=== PATIENT | female | born 1930 | race Caucasian/White ===

== ENCOUNTER → 2016-08-17 | Outpatient (CLI) | payer OTHER ==
[2015-03-17 12:03] VITALS: BP 133/68
[~2016-08-17] MED LIST: ACET325T9 PO; AMIO200T2 PO; ASPI81TA2 PO; ATOR20TA58 PO; ATOR40TA59 PO; CALC1TAB75 PO; CARV6.252 PO; CLOP75TA27 PO; DULO30CA2 PO; FURO40TA4 PO; ISOS30TA4 PO; LEVO75TA5 PO; LISI2.5T PO; MULT1TAB52 PO; POTA10TA31 PO
--- NOTE | 2016-08-17 15:17 | KCIC ---
PROCEDURE [facility] CXR. HISTORY Hypoxia. Shortness of air with activity. Previous VT. History pacemaker. COMPARISON None available. FINDINGS No acute lung infiltrate or pleural effusion or pulmonary edema or lung mass or pneumothorax is seen. Mild cardiomegaly is evident. A sternotomy is evident. A bipolar atrioventricular pacemaker is in place. The pulmonary vasculature, mediastinum and both kylie are otherwise unremarkable. The osseous structures appear intact. IMPRESSION Mild cardiomegaly. No acute lung infiltrate. Electronically signed by: Randy Franco MD (Aug 17, 2016 15:15:29)
== END | disposition home or self-care (01) ==
LOC: KCIC 13:32
PROVIDERS: ATTEND Family Medicine
DX: I51.7 Cardiomegaly (principal); I25.2 Old myocardial infarction; Z95.0 Presence of cardiac pacemaker
CPT/HCPCS: 71020

== ENCOUNTER → 2016-08-30 | Outpatient (CLI) | payer OTHER ==
[2015-03-17 12:03] VITALS: BP 133/68
--- NOTE | 2016-08-30 12:33 | RAD ---
EXAM: Ventilation/perfusion scintigraphy. HISTORY: Shortness of breath. History of pulmonary blood. COMPARISON: Chest radiograph, 08/30/2016. FINDINGS: 13.0 mCi xenon-133 were inhaled and ventilation images obtained. A 5.5 mCi technetium 99m MAA was injected intravenously and perfusion images were obtained in multiple projections. Ventilation images demonstrate physiologic ventilation on inspiration. There is a radiotracer retention diffusely, worse on the left than right. Perfusion images demonstrate no segmental defects. A photopenic defect on the right corresponds with a pacemaker generator. IMPRESSION: 1. Normal perfusion images. No evidence of pulmonary embolism. 2. Radiotracer retention is consistent with chronic obstructive pulmonary disease or small airways disease.
--- NOTE | 2016-08-30 13:11 | RAD ---
EXAM: Chest 2 views. HISTORY: Shortness of breath. COMPARISON: 08/17/2016. FINDINGS: Frontal and lateral views of the chest are obtained. A right-sided pacemaker has its leads in the right atrium and right ventricle. There are changes of coronary artery bypass grafting. Opacities in the left base, likely corresponding with an anterior opacity on the lateral projection, suggest scarring and are stable. There is no pneumothorax or pleural effusion. The heart is mildly enlarged. Hyperinflation is consistent with chronic obstructive pulmonary disease. IMPRESSION: 1. Mild cardiomegaly. 2. Opacities in the left base most likely indicate scarring. Correlation with remote studies is suggested to confirm long-term stability.
--- NOTE | 2016-08-31 11:20 | CARD ---
APPROVED REPORT EXAM: Two-dimensional and M-mode echocardiogram with Doppler and color Doppler. Other Information Quality : Good INDICATION Dyspnea Surgery/Intervention ICD/Pacemaker: 2D DIMENSIONS RVDd2.8 (2.9-3.5cm)Left Atrium(2D)3.4 (1.6-4.0cm) IVSd1.1 (0.7-1.1cm)Aortic Root(2D)3.2 (2.0-3.7cm) LVDd4.1 (3.9-5.9cm)LVOT Diameter2.0 (1.8-2.4cm) PWd1.1 (0.7-1.1cm)LVDs3.2 (2.5-4.0cm) FS (%) 21.3 %SV32.8 ml LVEF(%)43.7 (>50%) Mitral Valve MV E Mhmmvvbz57.5cm/sMV E Peak Gr.3mmHg MV DECEL [id number] A Cobdjnmy11.0cm/s MV E Mean Gr.1mmHgMV EOX21qe E/A Ratio0.6MV A Vxdyoeuv050ya MVA (PHT)2.74cm2 Tricuspid Valve TR P. Doplyaod756jz/sRAP VOTYKLML4wxTi TR Peak Gr.20ecNgKDRI06abIn Pulmonary Vein S1 Tqseavfl45.4cm/sD2 Hlglljci65.6cm/s PVa [id number] LEFT VENTRICLE The left ventricle is normal size. There is normal left ventricular wall thickness. The Ejection Frac tion is 35%. There is mild global hypokinesis of the left ventricle. Apical motion consistent with pa cemaker activation. Anterior wall hypokinesis. Transmitral Doppler flow pattern is Grade I-abnormal r elaxation pattern. RIGHT VENTRICLE The right ventricle is normal size. The right ventricular systolic function is normal. There is a pac emaker lead in the right ventricle. ATRIA The left atrium size is normal. The right atrium size is normal. A pacemaker is seen in the right atr ium consistent with history. The interatrial septum is intact with no evidence for an atrial septal d efect or patent foramen ovale as noted on 2-D or Doppler imaging. AORTIC VALVE The aortic valve is normal in structure and function. Doppler and Color Flow revealed mild aortic reg urgitation. There is no significant aortic valvular stenosis. MITRAL VALVE The mitral valve is calcified but opens well. There is no evidence of mitral valve prolapse. There is no mitral valve stenosis. Doppler and Color-flow revealed trace to mild mitral regurgitation. TRICUSPID VALVE The tricuspid valve is normal in structure and function. Doppler and Color Flow revealed mild tricusp id regurgitation. There is no pulmonary hypertension. The PA pressure was estimated at 28 mmHg. There is no tricuspid valve stenosis. PULMONIC VALVE Doppler and Color Flow revealed mild pulmonic valvular regurgitation. There is no pulmonic valvular s tenosis. GREAT VESSELS The aortic root is normal in size. The IVC is normal in size and collapses >50% with inspiration. PERICARDIAL EFFUSION There is no evidence of significant pericardial effusion. Critical Notification Critical Value: No <Conclusion> The Ejection Fraction is 35%. There is mild global hypokinesis of the left ventricle. Apical motion consistent with pacemaker activ ation. Anterior wall hypokinesis. There is a pacemaker lead in the right ventricle.
== END | disposition home or self-care (01) ==
LOC: NM 08:58
PROVIDERS: ATTEND Internal Medicine Critical Care Medicine
DX: R06.02 Shortness of breath (principal); Z82.49 Family history of ischemic heart disease and other diseases of the circulatory system; I10 Essential (primary) hypertension; Z95.0 Presence of cardiac pacemaker; Z79.01 Long term (current) use of anticoagulants
CPT/HCPCS: 71020; 78582; 93306; 96374; A9540; A9558

== ENCOUNTER 2016-11-09 07:23 | Inpatient (IN) | payer OTHER ==
[2016-11-09] VITALS (14 sets, daily range): BP systolic 123–159; BP diastolic 58–84
[~2016-11-09] VITALS: Ht 152.4 cm; Wt 42.6 kg
[2016-11-09] MEDS ORDERED: BACITRACIN 50,000 UNIT in IV NORMAL SALINE 250ML 250 ML IRR ONE (07:45)
[2016-11-09] MEDS ORDERED: VANCOMYCIN 1 GM in IV NORMAL SALINE 250ML 250 ML IV ONE ×2 (07:45→21:30)
[2016-11-09] MEDS ORDERED: LEVO100T5 PO (08:06)
[2016-11-09 08:09] LABS: HEMOGLOBIN 13.2 g/dL (12.0-15.5); RED BLOOD COUNT 4.14 x10^6/uL (3.50-5.40); RED CELL DISTRIBUTION WIDTH 14.2 % (11.5-14.5); WHITE BLOOD COUNT 7.1 x10^3/uL (4.0-11.0)
[2016-11-09 08:14] LABS: CALCIUM 8.9 mg/dL (8.5-10.1); CREATININE 1.3 mg/dL (0.6-1.0); GFR 38.8; POTASSIUM 3.3 mmol/L (3.5-5.1)
[2016-11-09 08:17] LABS: PROTHROMBIN TIME PATIENT 12.9 SEC (11.7-14.0)
[2016-11-09] MEDS ORDERED: LIDOCAINE 2%/EPI 1:100,000 20 ML VIAL. ONE (08:33)
[2016-11-09] MEDS ORDERED: MIDAZOLAM HCL/PF 5 MG/5 ML VIAL. ONE (09:08)
[2016-11-09] MEDS ORDERED: fentaNYL PF VIAL 250 MCG/5 ML VIAL ONE (09:08)
--- NOTE | 2016-11-09 09:09 | PDOC ---
MODERATE SEDATION ASSESSMENT RISKS/ALTERNATIVES Risks/Alternatives Risks and alternatives of this type of sedation and procedure discussed with: RISK/ALTERNATIVES: Patient H & P ON CHART H & P H & P on chart and reviewed for co-morbid conditions and appropriate labs. H&P ON CHART: Yes STATUS PREG STATUS ASSESSED: N/A MEDS/ALLERGIES REVIEWED Meds/Allergies Reviewed Medications and Allergies including time and route of recently administered narcotics and sedatives. MEDS/ALLERGIES REVIEWED: Yes ASA RATING ASA RATING: II AIRWAY ASSESSMENT Airway Assessment Airway patency, oral function limitations, presence of caps, crowns, dentures, partials, and ability to extend neck assessed. AIRWAY ASSESSMENT: Yes MALLAMPATI SCORE MALLAMPATI SCORE: II PRE-SEDATION ASSESSMENT PRE-SEDATION ASSESSMENT: Yes JENNY PAEZ MD November 09, 2016 09:09
[2016-11-09] MEDS ORDERED: LIDOCAINE 2%/EPI 1:100,000 20 ML VIAL. IJ ONE (09:30)
[2016-11-09] MEDS ORDERED: MIDAZOLAM HCL/PF 5 MG/5 ML VIAL. IV ONE (09:30)
[2016-11-09] MEDS ORDERED: fentaNYL PF VIAL 250 MCG/5 ML VIAL IV ONE (09:30)
[2016-11-09] MEDS ORDERED: NO ANTICOAGULANT THERAPY. MC PRN (11:15)
--- NOTE | 2016-11-09 11:20 | CARD ---
APPROVED REPORT EXAM Successful [employer] pacemaker upgrade to dual-chamber automatic implantable cardioverter defibrilla tor with defibrillation thresholds measurement at the time of implantation INDICATIONS Primary prevention of sudden cardiac in a patient with ischemic cardiomyopathy, chronic systoli c heart failure PROCEDURE After explaining the risks, benefits, and alternative options, informed consent was obtained from the patient. The patient was brought to the cardiac catheterization lab and the leftright chest and shoulder were prepped and draped in the usual fashion. 30 mL of 2% lidocaine was infiltrated into the skin and subcutaneous tissues for local anesthesia. An incision was made over the previous scar and using blunt dissection and cautery the pocket was opene d, So exposed and opened and the previously placed pacemaker generator removed from the pocket. The l giovani were detached from the generator. The right ventricular lead was then capped. Venous access was obtained in the left subclavian vein and 7 Mongolian sheath was inserted. A [employer] bipolar active fixation right ventricular lead model 7120Q/58, serial number [id number] w as advanced under fluoroscopic guidance and the tip was positioned in the right ventricular apex. Thi s lead and the previously placed right atrial lead were then attached to a [employer] dual-chamber AI CD generator model [id number], serial number [id number]. This was placed in the pocket that was subseque ntly closed in 3 layers. Hemostasis was secured. Ventricular fibrillation was then induced to check defibrillation threshold. Patient successfully con verted with 25 J shock therapy after initial attempt using 15 J shock therapy failed. The shock imped ance was 42 ohms. The right ventricular lead showed sensing amplitude of 7.0 mV, impedance of 630 ohm s and a threshold of 1 V. Patient tolerated the procedure well. There were no immediate complications . CONCLUSION Successful [employer] pacemaker upgrade to dual-chamber automatic implantable cardioverter defibrilla tor for primary prevention of sudden cardiac .
--- NOTE | 2016-11-09 11:50 | RAD ---
Portable chest, 11/09/2016: History: Post pacemaker insertion Comparison is made to a study from 08/30/2016. A new transvenous lead has been placed extending into the right ventricle. The 2 other old transvenous leads appear to be unchanged in positions. There are numerous EKG leads overlying the chest. The heart is mildly enlarged. There is calcific plaquing of the aorta. There is mild basilar scarring. No acute infiltrates are seen. There is no evidence of pneumothorax or pleural fluid. IMPRESSION: 1. Interval insertion of a new transvenous pacing lead extending into the right ventricle. 2. No other significant change since 08/30/2016.
[2016-11-09] MEDS ORDERED: ACETAMINOPHEN 325 MG TABLET. PO PRN (15:00)
[2016-11-09] MEDS: FUROSEMIDE 40 MG TABLET. PO SCH (16:40)
[2016-11-09] MEDS: CALCIUM CARB/VIT D3 500/200 TABLET. PO SCH (16:40)
[2016-11-09] MEDS: traMADol 50 MG TABLET PO PRN (18:37)
[2016-11-09] MEDS: POTASSIUM CHLORIDE 10 MEQ TABLET.ER. PO SCH (20:36)
[2016-11-09] MEDS: CARVEDILOL 6.25 MG TABLET. PO SCH (20:36)
[2016-11-09] MEDS ORDERED: MORPHINE SULFATE 2 MG/ML DISP.SYRIN. IV PRN (21:00)
[2016-11-09] MEDS ORDERED: ATORVASTATIN CALCIUM 40 MG TABLET. PO SCH (21:00)
[2016-11-09] MEDS ORDERED: BENZOCAINE/MENTHOL LOZENGE. PO PRN (22:15)
[2016-11-10] MEDS: traMADol 50 MG TABLET PO PRN ×2 (01:58→08:02)
[2016-11-10 03:00] VITALS: BP 133/72
[2016-11-10] MEDS ORDERED: LEVOTHYROXINE 100 MCG TABLET PO SCH (07:00)
[2016-11-10 07:26] VITALS: BP 116/56
[2016-11-10] MEDS: FUROSEMIDE 40 MG TABLET. PO SCH (07:58)
[2016-11-10] MEDS: CALCIUM CARB/VIT D3 500/200 TABLET. PO SCH ×2 (07:58→12:00)
[2016-11-10] MEDS: CARVEDILOL 6.25 MG TABLET. PO SCH (08:04)
[2016-11-10] MEDS: POTASSIUM CHLORIDE 10 MEQ TABLET.ER. PO SCH (08:05)
[2016-11-10] MEDS ORDERED: ISOSORBIDE MONONITRATE ER 30 MG TAB.ER.24H PO SCH (09:00)
[2016-11-10] MEDS ORDERED: MULTIVITAMIN with MINERAL TABLET. PO SCH (09:00)
[2016-11-10] MEDS ORDERED: AMIODARONE HCL 200 MG TABLET. PO SCH (09:00)
[2016-11-10] MEDS ORDERED: ASPIRIN CHEWABLE 81 MG TABLET. PO SCH (09:00)
--- NOTE | 2016-11-10 09:21 | RAD ---
Chest, 2 views, 11/10/2016: History: Post pacemaker placement Comparison is made to yesterday's study. Three transvenous pacing leads extending into the right heart are unchanged. The heart is mildly enlarged. There is extensive calcific plaquing of the aorta. The pulmonary vascularity is normal. A few scattered parenchymal scars are noted. No acute infiltrate is seen. There is no evidence of pneumothorax or significant pleural fluid. The bony structures are demineralized. IMPRESSION: No acute abnormality is detected with no significant change since yesterday's exam.
[2016-11-10] MEDS ORDERED: ACET325T9 PO (09:56)
--- NOTE | 2016-11-10 10:00 | DISCH ---
DISCHARGE INSTRUCTIONS Condition on Discharge Condition on Discharge: Stable Activity After Discharge Activity Instructions for Disc: Progressive ambulation Lifting Instructions after Dis: No pulling or pushing, Do not lift >10 pounds ( X 4 weeks) Driving Instructions after Dis: Other, see below (no driving X 4 weeks) Weight Bearing Status after Di: Full weight bearing Diet after Discharge Diet after Discharge: Cardiac, Low Sodium 2 gm Wound Incision Care Wound/Incision Care: Ice to area for comfort, Other, see below (allow steri- strips to fall off; may shower with back to stream of water) Checks after Discharge Checks after discharge: Weigh Yourself Daily Community/Resources/Services Services at Discharge: Home Health Care Services Contacting the DRJennifer after DC Call your doctor for: Fever greater than 100 (redness or drainage from site) Treatment/Equipment after DC Adaptive Equipment Issued: None Comment: may continue home oxygen at night LEONA DEAN APRN November 10, 2016 10:00
--- NOTE | 2016-11-10 10:15 | PDOC3 ---
Discharge Summary Visit Information Date of Admission: November 09, 2016 Date of Discharge: November 10, 2016 Admitting Diagnosis Comment: 1. ischemic cardiomyopathy, LVEF < 35% 2. SSS with previous pacemaker 3. CAD with previous CABG 4. chronic systolic heart failure 5. PAF 6. PUD 7. hypothyroidism Final Diagnosis 1. ischemic cardiomyopathy, LVEF < 35%; s/p upgrade to [employer] ICD 2. SSS with previous pacemaker 3. CAD with previous CABG 4. chronic systolic heart failure 5. PAF 6. PUD 7. hypothyroidism Brief Hospital Course Allergies Allergies Coded Allergies Type Severity Reaction Last Updated Verified Penicillins Allergy Intermediate 02/28/14 Yes Sulfa (Sulfonamide Antibiotics) Allergy Intermediate 11/09/16 Yes adhesive Allergy Intermediate 02/28/14 Yes cortisone Allergy Intermediate 02/28/14 Yes diltiazem Allergy Intermediate 02/28/14 Yes gabapentin Allergy Intermediate 11/09/16 Yes iodine Allergy Intermediate 02/28/14 Yes Vital Signs Vital Signs Date Time Temp Pulse Resp B/P (MAP) Pulse Ox O2 Delivery O2 Flow Rate FiO2 11/10/16 09:10 97 Room Air 11/10/16 08:04 60 11/10/16 08:02 18 2.0 11/10/16 08:00 116/56 11/10/16 07:26 98.5 98.5 Lab Results Laboratory Tests Test 11/09/16 07:50 White Blood Count 7.1 x10^3/uL (4.0-11.0) Red Blood Count 4.14 x10^6/uL (3.50-5.40) Hemoglobin 13.2 g/dL (12.0-15.5) Hematocrit 39.0 % (36.0-47.0) Mean Corpuscular Volume 94 fL (79-100) Mean Corpuscular Hemoglobin 32 pg (25-35) Mean Corpuscular Hemoglobin Concent 34 g/dL (31-37) Red Cell Distribution Width 14.2 % (11.5-14.5) Platelet Count 256 x10^3/uL (140-400) Prothrombin Time 12.9 SEC (11.7-14.0) Prothromb Time International Ratio 1.0 (0.8-1.1) Activated Partial Thromboplast Time 30 SEC (24-38) Sodium Level 144 mmol/L (136-145) Potassium Level 3.3 mmol/L (3.5-5.1) Chloride Level 105 mmol/L (98-107) Carbon Dioxide Level 33 mmol/L (21-32) Anion Gap 6 (6-14) Blood Urea Nitrogen 19 mg/dL (7-20) Creatinine 1.3 mg/dL (0.6-1.0) Estimated GFR (Cockcroft-Gault) 38.8 Glucose Level 82 mg/dL (70-99) Calcium Level 8.9 mg/dL (8.5-10.1) Brief Hospital Course Ms. Conrad is a 86 old female with a history of CAD and previous CABG as well as ischemic cardiomyopathy and chronic systolic HF. LVEF has been depressed @ < 35%. Upgrade of PPM to ICD for prevention of SCD associated with her depressed LVEF was discussed with patient. She was agreeable and PPM was upgraded to dual chamber [employer] ICD. Interrogation this a.m. demonstrated appropriate pacing, sensing and lead impedances. No shocks overnight and no dysrhythmias overnight. CXR without pneumothorax this a.m. Wound site C/D/I with mild erythema. Pulm - clear; CV S1S2. No lower extremity edema Discharge Information Condition at Discharge: Stable Follow Up: Weeks (one week for wound check on 11/19/2106 @ 10 a.m. ; follow up with PCP in 7 - 10 days) Disposition/Orders: D/C to Home w/ HH Scheduled Acetaminophen (Tylenol), 1 TAB PO PRN Q4HRS, (Reported) Amiodarone Hcl (Amiodarone Hcl), 1 TAB PO DAILY, (Reported) Aspirin (Aspirin), 1 TAB PO DAILY, (Reported) Atorvastatin Calcium (Atorvastatin Calcium), 1 TAB PO QHS, (Reported) Calcium Carbonate/Vitamin D3 (Calcium 600 + Vit D 200 Tablet), 1 EACH PO TID, ( Reported) Carvedilol (Carvedilol), 6.25 MG PO BID, (Reported) Furosemide (Furosemide), 1 TAB PO BID, (Reported) Isosorbide Mononitrate (Isosorbide Mononitrate Er), 1 TAB PO DAILY, (Reported) Levothyroxine Sodium (Levothyroxine Sodium), 1 TAB PO DAILY, (Reported) Multivitamin (Multivitamins), 1 TAB PO DAILY, (Reported) Potassium Chloride (Potassium Chloride), 10 MEQ PO BID, (Reported) Discontinued Medications Clopidogrel Bisulfate (Plavix), 75 MG PO DAILY, (Reported) Duloxetine Hcl (Cymbalta), 1 CAP PO DAILY, (Reported) Levothyroxine Sodium (Levothyroxine Sodium), 1 TAB PO DAILY, (Reported) Discontinued Reason: Prescription changed Lisinopril (Lisinopril), 1 TAB PO DAILYBFRSUP, (Reported) Patient Instructions Patient Instructions Must know & what to expect after device implant: 1. Your surgical dressing should be removed prior to discharge from the hospital, but allow the steri- strips to fall off naturally. 2. Activity restrictions: DO NOT raise arm above shoulder level, lift anything heavier than a gallon of milk, and no push or pull motions such as vacuuming/lawn mowing, no swinging motions (golf), etc for 4 weeks. 3. It is OK to use a cell phone or other electronic devices just be sure you do not store it in a breast pocket on the side where the device was placed. 4. Device will be interrogated prior to your discharge from the hospital and then every 3 months for defibrillators and every 6 months for pacemakers. You may be asked to have your device checked remotely from home as well, but this will depend on your particular physicians preference. 5. You may remove the arm immobilizer the day after device placement. Wear the arm immobilizer/splint at night (during sleep times) for 2 week to prevent unintended arm movement that can cause lead dislodgement. 6. Do not drive for one week as the task of driving may lead to unintended arm motion that may cause lead dislodgement. The seatbelt will also rub against the incision site & cause irritation. 7. It is our recommendation that you utilize Tylenol at home for pain control. You need to call our office if you are having uncontrollable pain at the incision site. 8. Keep your incision clean and dry. It is OK to shower. DO NOT submerge in bath, pool, or hot tub, until cleared by your doctor, as this could lead to increase risk of infection.. It is OK to use regular soap just do not scrub the incision site. Water spray from shower should not directly hit the incision. Be sure to blot dry not rub. 9. Inspect your incision daily. If you notice any increased redness, swelling , or drainage, or if you start running a fever, call the office immediately. The number is [phone]. 10. For women, if you need to protect against irritation from the bra straps, you can place a piece of gauze over the incision site for cushion. Please be sure to tape it loosely to allow air to the site & remove the gauze when you remove the bra. 11. Be sure to carry your device identification information card in your wallet/purse at all times. 12. It is OK to go through security at the airport with your device, but be sure to let the TSA know prior to proceeding as the security settings change depending on varying factors. Please do whatever is requested by security at that time. 13. Some of the newer devices may be MRI compatible but, currently, the use of these devices is not widespread, so you likely will not be able to have an MRI. Please clarify this with your physician. Special instructions for defibrillator patients: If your device recognizes a rhythm that requires treatment with a shock, you will most likely feel the shock. This is usually not a subtle feeling and it is uncomfortable. Please follow these steps if you receive a shock: Call the office if you receive one shock. Go to the emergency room if you receive two consecutive shocks- please have someone drive you & call 911 if nobody is available- DO NOT drive yourself. Call 911 if you receive more than 2 consecutive shocks. If at any time, you feel lightheaded or dizzy/faint, stop what you are doing & lie down immediately. If you are driving, get to the side of the road quickly, turn your car off & call 911 on your cell phone. DO NOT continue to drive as this may cause an accident that seriously injures yourself &/or others. Call the office at [phone] for any questions or concerns. LEONA DEAN APRN November 10, 2016 10:15
[2016-11-10 10:29] VITALS: BP 115/55
== END 2016-11-10 12:45 | disposition home health service (06) | DRG 227 ==
LOC: CCL 07:23 → 2 SOUTH 09:06
PROVIDERS: ADMIT Internal Medicine Cardiovascular Disease; ATTEND Internal Medicine Cardiovascular Disease
PROC: 0JH608Z Insertion of Defibrillator Generator into Chest Subcutaneous Tissue and Fascia, Open Approach (ICD-10-PCS; principal; 2016-11-09)
PROC: 02HK3KZ Insertion of Defibrillator Lead into Right Ventricle, Percutaneous Approach (ICD-10-PCS; 2016-11-09)
PROC: 0JPT0PZ Removal of Cardiac Rhythm Related Device from Trunk Subcutaneous Tissue and Fascia, Open Approach (ICD-10-PCS; 2016-11-09)
PROC: 02PA3MZ Removal of Cardiac Lead from Heart, Percutaneous Approach (ICD-10-PCS; 2016-11-09)
PROC: 02H63KZ Insertion of Defibrillator Lead into Right Atrium, Percutaneous Approach (ICD-10-PCS; 2016-11-09)
DX: I25.5 Ischemic cardiomyopathy (principal); I50.22 Chronic systolic (congestive) heart failure; I49.5 Sick sinus syndrome; E03.9 Hypothyroidism, unspecified; I25.10 Atherosclerotic heart disease of native coronary artery without angina pectoris; I48.0 Paroxysmal atrial fibrillation; K27.9 Peptic ulcer, site unspecified, unspecified as acute or chronic, without hemorrhage or perforation; Z95.0 Presence of cardiac pacemaker; Z95.1 Presence of aortocoronary bypass graft; Z91.041 Radiographic dye allergy status; Z88.0 Allergy status to penicillin; Z88.2 Allergy status to sulfonamides; Z88.8 Allergy status to other drugs, medicaments and biological substances; Z91.048 Other nonmedicinal substance allergy status
CPT/HCPCS: 33249; 36415; 71010; 71020; 80048; 85027; 85610; 85730; C1721; C1892; C1895; J2250; J2270; J3010; J3370; J3490; J7050; J7030

== ENCOUNTER 2017-02-27 08:12 | Emergency (ER) | payer OTHER ==
[~2017-02-27] VITALS: Ht 152.4 cm; Wt 43.1 kg
[~2017-02-27 08:12] MED LIST changes: +ASPI-630 PO; -ASPI81TA2 PO; -CLOP75TA27 PO; +CLOP75TA57 PO; +LEVO100T5 PO
[2017-02-27] MEDS ORDERED: ACETAMINOPHEN 500 MG TABLET PO ONE (08:30)
[2017-02-27] MEDS ORDERED: KETOROLAC TROMETHAMINE 60 MG/2 ML INJ. IM ONE (08:30)
--- NOTE | 2017-02-27 08:32 | PHYS DOC ---
Past Medical History Past Medical History: CAD, High Cholesterol, Hypertension, Hypothyroid, [place] Past Surgical History: Appendectomy, Coronary Bypass Surgery, , Pacemaker, Tonsillectomy Alcohol Use: Occasionally Drug Use: None Adult General Chief Complaint Chief Complaint: Neck Pain [facility] HPI This is a pleasant 86-year-old female with multiple medical problems who presents with nontraumatic neck pain that began 2 days prior to arrival. She describes as a neck spasm neck pain worse with range of motion over the right side of the neck with some radiation to the posterior portion of the neck and the right shoulder. There is no numbness, tingling, weakness in the right arm associated with such pain. The pain is worse with range of motion and direct pressure over the spasms in the neck. sHe denies any prior trauma, night sweats, weight loss, rash, neck stiffness. She denies any recent URI symptoms. She is warned that the pain is getting worse and she might have another stroke. Patient denies any chest pain, shortness breath or other symptoms with her neck discomfort. Patient says the pain right now at rest. 3 of 10 about an 8 or 9 of 10 with movements. Review of Systems Review of Systems Constitutional: Denies fever or chills [] Eyes: Denies change in visual acuity, redness, or eye pain [] HENT: Denies nasal congestion or sore throat [] Respiratory: Denies cough or shortness of breath [] Cardiovascular: No additional information not addressed in HPI [] GI: Denies abdominal pain, nausea, vomiting, bloody stools or diarrhea [] : Denies dysuria or hematuria [] Musculoskeletal: sHe complains of neck pain without back pain or joint pain. Integument: Denies rash or skin lesions [] Neurologic: Denies headache, focal weakness or sensory changes [] Endocrine: Denies polyuria or polydipsia [] Current Medications Current Medications Current Medications Medications (Trade) Dose Ordered Sig/Lara Start Time Stop Time Status Last Admin Dose Admin Acetaminophen (Tylenol) 1,000 mg 1X ONCE 02/27/17 08:30 02/27/17 08:31 DC 02/27/17 08:35 1,000 MG Diazepam (Valium) 5 mg 1X ONCE 02/27/17 08:30 02/27/17 08:31 DC 02/27/17 08:40 5 MG Ketorolac Tromethamine (Toradol Im) 30 mg 1X ONCE 02/27/17 08:30 02/27/17 08:31 DC 02/27/17 08:40 30 MG Allergies Allergies Allergies Coded Allergies Type Severity Reaction Last Updated Verified Penicillins Allergy Intermediate 02/27/17 Yes Sulfa (Sulfonamide Antibiotics) Allergy Intermediate 02/27/17 Yes adhesive Allergy Intermediate 02/27/17 Yes cortisone Allergy Intermediate 02/27/17 Yes diltiazem Allergy Intermediate 02/27/17 Yes gabapentin Allergy Intermediate 02/27/17 Yes iodine Allergy Intermediate 02/27/17 Yes Physical Exam Physical Exam Of the vital signs have been recorded on the chart that are unremarkable and within normal limits. Constitutional: Well developed, no acute distress, non-toxic appearance. Patient is somewhat thin and cachectic for age[] HENT: Normocephalic, atraumatic, bilateral external ears normal, oropharynx moist, no oral exudates, Neck: She has a decreased range of motion secondary to tenderness along the middle belly and superior belly of the trapezius muscle on the right. Patient has localized tenderness to palpation with no redness or rash. The pain is reproducible exactly on exam. Cardiovascular:Heart rate regular rhythm, or is a significant 2/6 systolic ejection murmur. No obvious carotid bruit noted Lungs & Thorax: Bilateral breath sounds clear to auscultation [] Skin: Warm, dry, no erythema, no rash. [] Back: Tenderness to palpation over the trapezius muscle. Nothing in the midline back over the rhomboid major and minor muscle Extremities: No tenderness, no cyanosis, no clubbing, ROM intact, no edema. [] Neurologic: Alert and oriented X 3, normal motor function, normal sensory function, no focal deficits noted. [] Psychologic: Affect normal, judgement normal, mood normal. [] Current Patient Data Vital Signs Vital Signs Date Time Temp Pulse Resp B/P (MAP) Pulse Ox O2 Delivery O2 Flow Rate FiO2 02/27/17 08:15 97.8 64 20 96 Room Air 97.8 EKG EKG [] Radiology/Procedures Radiology/Procedures [] Course & Med Decision Making Course & Med Decision Making Pertinent Labs and Imaging studies reviewed. (See chart for details) patient presents with what I believe is torticollis. It is not midline there is no associated trauma. Patient has no evidence or tenderness to with stiffness of her neck consistent with meningitis. As there is no Kernig's or Burzynski sign. Patient has a normal neuro exam no evidence of bruits on exam over the carotids. At this point I will treat her with a low-dose of NSAIDs, Tylenol and a small dose of Valium. And complete reassessment. Patient tells me that their symptoms given during CC are improved. The family at the bedside I talked about treatment plan and disposition instructions. Patient feels markedly better already began to continue normal neuro exam normal mentation with no evidence of meningitis. [] Dragon Disclaimer Dragon Disclaimer This electronic medical record was generated, in whole or in part, using a voice recognition dictation system. Departure Departure Impression: Primary Impression: Torticollis Disposition: HOME, SELF-CARE Condition: IMPROVED Referrals: BRADLEY GARCIA MD (PCP) Patient Instructions: Torticollis, Acute Additional Instructions: My discharge plan Follow up: In addition patient is asked to followup with their primary doctor, within a week for followup examination and to address patient's ongoing medical conditions. Patient is advised that in the Emergency Department primary complaints are addressed and only in light of known signs and symptoms. Patient should return immediately to the emergency department if new signs and symptoms develop or patient's condition worsens in any way. At time of discharge patient was in stable condition and had verbalized understanding of the discharge instructions. Scripts Ibuprofen (MOTRIN IB) 200 Mg Tablet 200 MG PO Q6H Y for PAIN for 5 Days, #20 TAB Prov: GABRIEL PEREZ MD 02/27/17 Diazepam (VALIUM) 5 Mg Tablet 5 MG PO TID for MUSCLE SPASMS for 5 Days, #15 TAB Prov: GABRIEL PEREZ MD 02/27/17 Acetaminophen (TYLENOL) 325 Mg Tablet 1-2 TAB PO QID, #60 TAB 2 Refills Prov: GABRIEL PEREZ MD 02/27/17 GABRIEL PEREZ MD Feb 27, 2017 08:32
[2017-02-27] MEDS ORDERED: ACET325T9 PO (09:19)
[2017-02-27] MEDS ORDERED: IBUP200T43 PO (09:19)
[2017-02-27] MEDS ORDERED: DIAZ5TAB PO (09:19)
[2017-02-27 09:30] VITALS: BP 123/58
== END 2017-02-27 09:35 | disposition home or self-care (01) ==
LOC: ER 08:12
DX: M43.6 Torticollis (principal); I10 Essential (primary) hypertension; E78.00 Pure hypercholesterolemia, unspecified; E03.9 Hypothyroidism, unspecified; I25.10 Atherosclerotic heart disease of native coronary artery without angina pectoris; I25.2 Old myocardial infarction; Z95.1 Presence of aortocoronary bypass graft; Z95.0 Presence of cardiac pacemaker; Z90.89 Acquired absence of other organs; Z88.0 Allergy status to penicillin; Z88.2 Allergy status to sulfonamides; Z88.8 Allergy status to other drugs, medicaments and biological substances; Z88.9 Allergy status to unspecified drugs, medicaments and biological substances; Z91.041 Radiographic dye allergy status
CPT/HCPCS: 96372; 99284; J1885; J3360

== ENCOUNTER → 2017-06-09 | Outpatient (CLI) | payer OTHER ==
[~2017-06-09] MED LIST changes: +DIAZ5TAB PO; +IBUP200T44 PO; +REGADENOSON 0.4 MG/5 ML DISP.SYRIN. IV ONE
--- NOTE | 2017-06-09 14:05 | RAD ---
APPROVED REPORT Test Type: Pharmacological Stress Nurse/Tech: Marianela Muller R.N. Test Indications: CAD Cardiac History: CABG 2007, htn, AICD, Medications: See Electronic Medical Record Medical History: See Electronic Medical Record Resting ECG: paced rhythm Resting Heart Rate: 59 bpm Resting Blood Pressure: 133/66mmHg Pretest Chest Pain: No chest pain Nurse/Tech Notes S1S2, murmur, lungs CTA Consent: The procedure was explained to the patient in lay terms. Informed consent was witnessed. Perry eout was entered into [employer]. History and Stress Test performed by RT Stephanie (R) (N) Pharm. Details Pharmacologic stress testing was performed using 0.4mg per 5ml of regadenoson given intravenously ove r 7-10 seconds. Stress Symptoms slight h/a POST EXERCISE Reason for Termination: Infusion complete Max HR: 91 bpm Max Blood Pressure: 130/51mmHg Blood Pressure response to exercise: Normal blood pressure response during stress. Heart Rate response to exercise: wnl Chest Pain: No. Arrhythmia: No. ST Change: No. INTERPRETATION Stress EKG Conclusion: Non-diagnostic EKG due to paced rhythm. Imaging Protocol IMAGE PROTOCOL: Rest Tc-99m/stress Tc-99m 1 day Rest: Stress: Viability: Radiopharm.Tc99m SjovhlrwwPh20s Sestamibi [id number] 32.8mCi Img Date 06/09/2017 06/09/2017 Inj-Img [id number]. 60min. Rest Admin Site:IV - Left ForearmAdministrator:RT Dorcas (R)(N) Stress Admin Site: IV - Left ForearmAdministrator: RT Dorcas (R)(N) STRESS DATA End Diast. Vol.81.0mlAv. Heart Rate59.0bpm End Syst. Vol.26.0mlCO Index BSA3.2L/min Myocardial Uorr703.0gEject. Heafqpvx39.0% Stress Rates Pk. Fill Rate2.11EDV/secLVtime Pk. Fill 181.31msec Pk. Empty Rate2.75ESV/secLVtime Pk. Pbfzn150.16msec 06/29 Pk. Fill1.06EDV/sec Stress Scores Regional WT0.00Summed WT4.00 Regional WM0.00Summed WM17.00 The rest and stress images show normal perfusion, normal contraction and thickening. LV Perf. Quant 17 Seg. SSS4.00 17 Seg. SRS3.00 17 Seg. SDS3.00 Stress Defect Extent (% LAD)2.50Rest Defect Extent (% LAD)5.00Rev. Defect Extent (% LAD)0.00 Stress Defect Extent (% LCX) 30.00Rest Defect Extent (% LCX)0.00Rev. Defect Extent (% LCX)25.00 Stress Defect Extent (% RCA)0.00Rest Defect Extent (% RCA)3.30Rev. Defect Extent (% RCA)0.00 Stress Defect Extent (% KIMBERYL)8.70Rest Defect Extent (% KMIBERLY)7.00Rev. Defect Extent (% KIMBERLY)4.30 Other Information Quality:Good Risk Assessment: Low Risk Conclusion 1. Non-diagnostic EKG due to paced rhythm. 2. Normal perfusion at stress/rest. 3. Normal EF at > 60% 4. Low risk study.
== END | disposition home or self-care (01) ==
LOC: NM 08:36
PROVIDERS: ATTEND Internal Medicine Cardiovascular Disease
DX: I25.10 Atherosclerotic heart disease of native coronary artery without angina pectoris (principal); I49.5 Sick sinus syndrome; I10 Essential (primary) hypertension
CPT/HCPCS: 78452; 93017; 96374; 96375; 96376; A9500; J2785

== ENCOUNTER → 2017-09-19 | Outpatient (CLI) | payer OTHER | END | disposition home or self-care (01) | LOC: KCIC 15:56 | DX: J40 Bronchitis, not specified as acute or chronic (principal); I51.7 Cardiomegaly; I70.0 Atherosclerosis of aorta | CPT/HCPCS: 71046 ==